=== PATIENT | female | born 1970 | race Hispanic/Latino ===

== ENCOUNTER 2018-12-09 21:43 | Emergency (ER) | payer MEDICAID ==
[2018-12-09] MEDS ORDERED: TETANUS & DIPHTHERIA TOX,ADULT 0.5 ML VIAL ONE (21:58)
[2018-12-09] MEDS ORDERED: FENTANYL CITR 100 MCG/2 ML ONE ×2 (22:02→22:45)
[2018-12-09] MEDS ORDERED: LIDOCAINE 1% W/EPI 1:100,000 MDV 20 ML VIAL ONE (22:02)
[2018-12-09] MEDS ORDERED: VANCOMYCIN 1 GM/VIAL ONE (22:11)
[2018-12-09] MEDS ORDERED: PIPER/TAZO/NS 3.375gm 3.375 GM/100 ML BAG ONE (22:12)
[2018-12-09] MEDS ORDERED: NA CHLORIDE 0.9% 250 ML ONE (22:13)
[2018-12-09 22:19] LABS: Absolute Lymphocytes (CBC) 3.8 K/uL (0.7-4.9); Basophils % 0.6 % (0-1.3); Hematocrit 40.1 % (36.0-45.0); Lymphocytes % 32.4 % (15.3-44.8); MPV 8.1 fL (7.6-11.3)
[2018-12-09 22:20] LABS: Protime INR 1.14
[2018-12-09 22:38] LABS: Albumin 3.8 g/dL (3.4-5.0); Bilirubin Total 0.2 mg/dL (0.2-1.0); Potassium 3.7 mmol/L (3.5-5.1); Protein, Total 7.6 g/dL (6.4-8.2)
[2018-12-10] MEDS ORDERED: NA CHLORIDE 0.9% 1,000 ML ONE (00:25)
--- NOTE | 2018-12-10 02:01 | EDPHYS ---
Physician Documentation [facility] Name: Anne Marie Lester Age: 48 yrs Sex: Female : 1970 Arrival Date: 12/09/2018 Time: 21:47 Bed 25 Private MD: ED Physician Guillermo Engel HPI: 12/10 08:32 This 48 yrs old Female presents to ER via EMS with complaints of Leg Injury. wa 08:32 The patient presents with an injury, a puncture wound, large bolt. The complaints wa affect the medial aspect of left upper calf. The complaints affect the. Context: The problem was sustained at home, resulted from the patient falling, the patient is not able to bear weight, the patient is not able to ambulate, Problem is a result from a previous injury: No. per EMS and pt tripped and fell on a 4 inch bolt nailed to the ground in her garage. impaled L leg on the bolt. Onset: The symptoms/episode began/occurred just prior to arrival. Modifying factors: The symptoms are alleviated by nothing. the symptoms are aggravated by movement, weight bearing. Associated signs and symptoms: Pertinent positives: swelling, pain. bleeding, of the lateral aspect of left calf. Treatment prior to arrival includes: lina wrap, pain meds by EMS- gave a dose of nubain. Severity of symptoms: At their worst the symptoms were moderate, in the emergency department the symptoms have improved. The patient has not experienced similar symptoms in the past. The patient has not recently seen a physician. . CAP SEWER: 12/09 21:42 LMP N/A - Hysterectomy fc Historical: - Allergies: 21:58 No Known Allergies; fc - Home Meds: 21:58 None [Active]; fc - PMHx: 21:58 cervical cancer; GERD; fc - PSHx: 21:58 Hysterectomy; Cholecystectomy; fc - Immunization history: Last tetanus immunization: unknown. - Social history:: Smoking status: Patient/guardian denies using tobacco, Patient uses alcohol, occasionally. Patient/guardian denies using street drugs. - Ebola Screening: : Patient negative for fever greater than or equal to 101.5 degrees Fahrenheit, and additional compatible Ebola Virus Disease symptoms Patient denies exposure to infectious person Patient denies travel to an Ebola-affected area in the 21 days before illness onset. - Family history:: not pertinent. - Hospitalizations: : No recent hospitalization is reported. ROS: 12/10 08:38 Constitutional: Negative for fever, chills, and weight loss, Eyes: Negative for injury, wa pain, redness, and discharge, ENT: Negative for injury, pain, and discharge, Neck: Negative for injury, pain, and swelling, Cardiovascular: Negative for chest pain, palpitations, and edema, Respiratory: Negative for shortness of breath, cough, wheezing, and pleuritic chest pain, Abdomen/GI: Negative for abdominal pain, nausea, vomiting, diarrhea, and constipation, Back: Negative for injury and pain, : Negative for injury, bleeding, discharge, and swelling, Neuro: Negative for headache, weakness, numbness, tingling, and seizure, Psych: Negative for depression, anxiety, suicide ideation, homicidal ideation, and hallucinations. MS/extremity: Positive for puncture, tenderness, of the lateral aspect of left calf, Negative for deformity. Skin: Positive for puncture, of the lateral aspect of left calf. Exam: 08:39 Constitutional: This is a well developed, well nourished patient who is awake, alert, wa and in no acute distress. Head/Face: Normocephalic, atraumatic. Eyes: Pupils equal round and reactive to light, extra-ocular motions intact. Lids and lashes normal. Conjunctiva and sclera are non-icteric and not injected. Cornea within normal limits. Periorbital areas with no swelling, redness, or edema. ENT: Nares patent. No nasal discharge, no septal abnormalities noted. Tympanic membranes are normal and external auditory canals are clear. Oropharynx with no redness, swelling, or masses, exudates, or evidence of obstruction, uvula midline. Mucous membranes moist. Neck: Trachea midline, no thyromegaly or masses palpated, and no cervical lymphadenopathy. Supple, full range of motion without nuchal rigidity, or vertebral point tenderness. No Meningismus. Chest/axilla: Normal chest wall appearance and motion. Nontender with no deformity. No lesions are appreciated. Cardiovascular: Regular rate and rhythm with a normal S1 and S2. No gallops, murmurs, or rubs. Normal PMI, no JVD. No pulse deficits. Respiratory: Lungs have equal breath sounds bilaterally, clear to auscultation and percussion. No rales, rhonchi or wheezes noted. No increased work of breathing, no retractions or nasal flaring. Abdomen/GI: Soft, non-tender, with normal bowel sounds. No distension or tympany. No guarding or rebound. No evidence of tenderness throughout. Back: No spinal tenderness. No costovertebral tenderness. Full range of motion. Neuro: Awake and alert, GCS 15, oriented to person, place, time, and situation. Cranial nerves II-XII grossly intact. Motor strength 5/5 in all extremities. Sensory grossly intact. Cerebellar exam normal. Normal gait. Psych: Awake, alert, with orientation to person, place and time. Behavior, mood, and affect are within normal limits. 08:39 Musculoskeletal/extremity: Extremities: grossly normal except: noted in the lateral aspect of left calf: contusion, puncture, large, deep puncture wound L lateral proximal leg about 4 cm below level of knee. noted to bone. 08:39 Skin: see musculoskeletal exam above. Vital Signs: 12/09 21:42 BP 157 / 100; Pulse 83; Resp 18; Temp 99.1(O); Pulse Ox 98% on R/A; Weight 83.91 kg fc (R); Height 5 ft. 3 in. (160.02 cm) (R); Pain 2/10; 22:51 BP 133 / 71; Pulse 73; Resp 18; Pulse Ox 100% on R/A; Pain 7/10; mg2 23:53 BP 129 / 83; Pulse 70; Resp 18; Pulse Ox 99% on R/A; mg2 12/10 01:00 BP 123 / 73; Pulse 64; Resp 18; Pulse Ox 95% on R/A; wh 01:55 BP 136 / 86; Pulse 66; Resp 18; Pulse Ox 99% on R/A; wh 12/09 21:42 Body Mass Index 32.77 (83.91 kg, 160.02 cm) Renato Coma Score: 12/09 21:42 Eye Response: spontaneous(4). Verbal Response: oriented(5). Motor Response: obeys fc commands(6). Total: 15. 22:51 Eye Response: spontaneous(4). Verbal Response: oriented(5). Motor Response: obeys mg2 commands(6). Total: 15. Trauma Score (Adult): 21:42 Eye Response: spontaneous(1); Verbal Response: oriented(1); Motor Response: obeys fc commands(2); Systolic BP: > 89 mm Hg(4); Respiratory Rate: 10 to 29 per min(4); [place] Score: 15; Trauma Score: 12 22:51 Eye Response: spontaneous(1); Verbal Response: oriented(1); Motor Response: obeys mg2 commands(2); Systolic BP: > 89 mm Hg(4); Respiratory Rate: 10 to 29 per min(4); Renato Score: 15; Trauma Score: 12 Procedures: 12/10 08:41 Performed irrigation: wound anesthetized with 2% lidocaine with epi. washed out of 1 wa liter of NS. dressed with wet-to-dry dressing. pt tolerated well. MDM: 12/09 21:48 Patient medically screened. me 12/10 08:55 Differential diagnosis: open fracture, contusion. Data reviewed: vital signs, nurses wa notes. Test interpretation: by ED physician or midlevel provider: L tib-fib: no acute fx. Test interpretation: by ED physician or midlevel provider: labs noted wnl. . Response to treatment: the patient's symptoms have markedly improved after treatment. ED course: IV abx given. washed out. spoke with ortho Dr. Scales. advised he will not do anything further and pt can go home with abx and f/u as out pt. 08:58 Test interpretation: by ED physician or midlevel provider: labs noted wnl. me 12/09 21:53 Order name: CBC with Diff; Complete Time: 08:57 me 12/09 21:53 Order name: CMP; Complete Time: 08:57 me 12/09 21:47 Order name: Tib Fib Left XRAY fc 12/09 21:53 Order name: PT-INR; Complete Time: 08:57 me 12/09 21:53 Order name: Type And Screen; Complete Time: 08:57 me 12/09 23:11 Order name: Ankle Left 3 View XRAY me 12/09 21:52 Order name: IV Saline Lock; Complete Time: 21:56 me 12/10 02:00 Order name: Crutches; Complete Time: 02:15 me 12/10 02:00 Order name: Aircast Ankle Splint; Complete Time: 02:15 me Administered Medications: 12/09 22:08 Drug: Tetanus-Diphtheria Toxoid Adult 0.5 ml {Strap Maker: [employer]. Exp: mg2 08/01/2020. Lot #: [id number]. } Route: IM; Site: left deltoid; 22:50 Follow up: Response: No adverse reaction [facility] [place] Drug: fentaNYL (PF) 50 mcg Route: IVP; Site: left antecubital; [facility] [place] Follow up: Response: No adverse reaction; Pain is unchanged, physician notified [facility] [place]:19 Drug: Zosyn 3.375 grams Route: IVPB; Infused Over: 60 mins; Site: left antecubital; [facility] [place]:50 Drug: fentaNYL (PF) 50 mcg Route: IVP; Site: left antecubital; [facility] [place]:14 Follow up: Response: No adverse reaction; Marked relief of symptoms [facility] [place]:08 Drug: vancoMYCIN 1 grams Route: IVPB; Infused Over: 2 hrs; Site: left antecubital; [facility] [place] 12/10 02:40 Follow up: Response: No adverse reaction; IV Status: Completed infusion 00:30 Drug: NS 0.9% 1000 ml Route: IV; Rate: 1 bolus; Site: left antecubital; 02:40 Follow up: Response: No adverse reaction; IV Status: Completed infusion 02:15 Drug: fentaNYL (PF) 50 mcg Route: IVP; Site: left antecubital; 02:36 Follow up: Response: No adverse reaction; Pain is decreased; RASS: Alert and Calm (0) Disposition: 12/10/18 01:59 Discharged to Home. Impression: Acute left leg puncture wound, acute ankle sprain. - Condition is Stable. - Discharge Instructions: Puncture Wound, [id number]. - Prescriptions for Augmentin 875- 125 mg Oral Tablet - take 1 tablet by ORAL route every 12 hours for 10 days; 20 tablet. Tramadol 50 mg Oral Tablet - take 1 tablet by ORAL route every 8 hours as needed; 12 tablet. Ibuprofen 800 mg Oral Tablet - take 1 tablet by ORAL route every 12 hours As needed take with food; 20 tablet. - Medication Reconciliation Form, Thank You Letter, Antibiotic Education, Prescription Opioid Use form. - Follow up: Chaim Scales MD; When: 1 - 2 days; Reason: Recheck today's complaints. - Problem is new. - Symptoms have improved. - Notes: please follow up with Dr. Scales within 1-2 days for wound evaluation. take antibiotics as prescribed Signatures: Dispatcher [employer] EDMS Sarah Gillette RN RN Mera Hutchins Guillermo Engel MD MD wa Gardose, Michele, RN RN mg2 Corrections: (The following items were deleted from the chart) 02:39 01:59 12/10/2018 01:59 Discharged to Home. Impression: Acute left leg puncture wound; wh acute ankle sprain. Condition is Stable. Forms are Medication Reconciliation Form, Thank You Letter, Antibiotic Education, Prescription Opioid Use. Follow up: Chaim Scales; When: 1 - 2 days; Reason: Recheck today's complaints. Problem is new. Symptoms have improved. dahlia
--- NOTE | 2018-12-10 02:01 | ER ---
Nurse's Notes [facility] Name: Anne Marie Lester Age: 48 yrs Sex: Female : 1970 Arrival Date: 12/09/2018 Time: 21:47 Bed 25 Private MD: Diagnosis: Acute left leg puncture wound;acute ankle sprain Presentation: 12/09 21:42 Presenting complaint: Patient states: that she was walking outside and tripped. Then her left lower leg was puncture by a 4 inch bolt. When she turned over the leg came off the bolt along with significant amt of tissue. Scant bleeding noted. Care prior to arrival: Bleeding of injury controlled. Injury dressed. Medication(s) given: Nubaine 10 mg IVP IV initiated. 20 GA, in the left antecubital area. Mechanism of Injury: Penetrating trauma inflicted by metal that penetrated 4 inches. Object removed prior to arrival. Trauma event details: Injury occurred in the [facility], Injury occurred: at home. Injury occurred: December 09, 2018 Injury occurred at: 20:55. 21:42 Acuity: MAURA 3 21:42 Method Of Arrival: EMS: [facility] 21:42 Transition of care: patient was not received from another setting of care. Onset of fc symptoms was December 09, 2018 at 20:55. Risk Assessment: Do you want to hurt yourself or someone else? Patient reports no desire to harm self or others. Initial Sepsis Screen: Does the patient meet any 2 criteria? No. Patient's initial sepsis screen is negative. Does the patient have a suspected source of infection? No. Patient's initial sepsis screen is negative. Triage Assessment: 22:28 Injury Description: avulsion. mg2 RECEPTION SPECIALIST: 21:42 LMP N/A - Hysterectomy fc Trauma Activation: Alert Physician: ED Physician; Name: Maren; Notified At: 21:42; Arrived At: 21:42 Physician: General Surgeon; Name: ; Notified At: 21:42; Arrived At: Physician: Radiology; Name: Sharlene Luciano; Notified At: 21:42; Arrived At: 21:42 Physician: Respiratory; Name: ; Notified At: 21:42; Arrived At: Physician: Sydnee; Name: ; Notified At: 21:42; Arrived At: Historical: - Allergies: 21:58 No Known Allergies; fc - Home Meds: 21:58 None [Active]; fc - PMHx: 21:58 cervical cancer; GERD; fc - PSHx: 21:58 Hysterectomy; Cholecystectomy; fc - Immunization history: Last tetanus immunization: unknown. - Social history:: Smoking status: Patient/guardian denies using tobacco, Patient uses alcohol, occasionally. Patient/guardian denies using street drugs. - Ebola Screening: : Patient negative for fever greater than or equal to 101.5 degrees Fahrenheit, and additional compatible Ebola Virus Disease symptoms Patient denies exposure to infectious person Patient denies travel to an Ebola-affected area in the 21 days before illness onset. - Family history:: not pertinent. - Hospitalizations: : No recent hospitalization is reported. Screenin:42 Abuse screen: Denies threats or abuse. Tuberculosis screening: No symptoms or risk fc factors identified. 21:57 Nutritional screening: No deficits noted. Fall Risk Fall in past 12 months (25 points). fc No secondary diagnosis (0 pts). IV access (20 points). Ambulatory Aid- None/Bed Rest/Nurse Assist (0 pts). Gait- Normal/Bed Rest/Wheelchair (0 pts) Mental Status- Oriented to own ability (0 pts). Total Harp Fall Scale indicates High Risk Score (45 or more points). Fall prevention measures have been instituted. Side Rails Up X 2 Placed Close to Nursing Station Frequent Obs/Assessments Occuring As available patient and family educated on Fall Prevention Program and Strategies. Primary Survey: 22:25 NO uncontrolled hemorrhage observed. A: The patient is alert. Airway: patent. mg2 Breathing/Chest: Respiratory pattern: regular, Respiratory effort: spontaneous, unlabored, Breath sounds: clear, bilaterally. in mediastinum, right upper lobe, left upper lobe, right middle lobe, left lower lobe and right lower lobe. Circulation: Skin color: pink. Disability Alert. Exposure/Environment: All clothing and personal items were removed. Forensic evidence collection is not deemed to be indicated at this time. Items placed in patient belonging bag. There is no evidence of uncontrolled external bleeding. Obvious injury(ies) are noted at this time: open wound in the left lower leg A warming method has been applied: A warm blanket has been provided to the patient. 22:50 Reassessment Airway Airway Patent Breathing/Chest Respiratory pattern Regular mg2 Respiratory effort Spontaneous Unlabored. Secondary Survey: 22:26 HEENT: No deficits noted. Gastrointestinal: No deficits noted. : No deficits noted. mg2 Musculoskeletal: Circulation, motion, and sensation intact. Capillary refill < 3 seconds. Injury Description: avulsed wound. Assessment: 22:00 General: Appears in no apparent distress. uncomfortable, Behavior is cooperative, mg2 anxious. Pain: Complains of pain in left lower leg Pain does not radiate. Pain currently is 5 out of 10 on a pain scale. Quality of pain is described as aching, Pain began suddenly, 1 hour ago. Is intermittent. 22:00 Neuro: Level of Consciousness is awake, alert, obeys commands, Oriented to person, mg2 place, time, situation. EENT: No signs and/or symptoms were reported regarding the EENT system. Cardiovascular: Capillary refill < 3 seconds Patient's skin is warm and dry. Respiratory: Airway is patent Respiratory effort is even, unlabored, Respiratory pattern is regular, symmetrical. GI: No signs and/or symptoms were reported involving the gastrointestinal system. : No deficits noted. Derm: Wound noted left lower leg Wound is new wound, scant bleeding noted, tissues exposed. Musculoskeletal: Circulation, motion, and sensation intact. Capillary refill < 3 seconds. 23:53 Reassessment: Patient appears in no apparent distress at this time. Patient and/or mg2 family updated on plan of care and expected duration. Pain level reassessed. Patient is alert, oriented x 3, equal unlabored respirations, skin warm/dry/pink. 12/10 01:00 Reassessment: Patient appears in no apparent distress at this time. No changes from previously documented assessment. Patient and/or family updated on plan of care and expected duration. Pain level reassessed. Patient is alert, oriented x 3, equal unlabored respirations, skin warm/dry/pink. Wound cleaned by Dr Maren QUESADA, dressing change done. 01:54 Reassessment: Patient appears in no apparent distress at this time. No changes from previously documented assessment. Patient and/or family updated on plan of care and expected duration. Pain level reassessed. Patient is alert, oriented x 3, equal unlabored respirations, skin warm/dry/pink. Patient denies pain at this time. Vital Signs: 12/09 21:42 BP 157 / 100; Pulse 83; Resp 18; Temp 99.1(O); Pulse Ox 98% on R/A; Weight 83.91 kg fc (R); Height 5 ft. 3 in. (160.02 cm) (R); Pain 2/10; 22:51 BP 133 / 71; Pulse 73; Resp 18; Pulse Ox 100% on R/A; Pain 7/10; mg2 23:53 BP 129 / 83; Pulse 70; Resp 18; Pulse Ox 99% on R/A; mg2 12/10 01:00 BP 123 / 73; Pulse 64; Resp 18; Pulse Ox 95% on R/A; wh 01:55 BP 136 / 86; Pulse 66; Resp 18; Pulse Ox 99% on R/A; wh 12/09 21:42 Body Mass Index 32.77 (83.91 kg, 160.02 cm) fc [place] Coma Score: 12/09 21:42 Eye Response: spontaneous(4). Verbal Response: oriented(5). Motor Response: obeys fc commands(6). Total: 15. 22:51 Eye Response: spontaneous(4). Verbal Response: oriented(5). Motor Response: obeys mg2 commands(6). Total: 15. Trauma Score (Adult): 21:42 Eye Response: spontaneous(1); Verbal Response: oriented(1); Motor Response: obeys fc commands(2); Systolic BP: > 89 mm Hg(4); Respiratory Rate: 10 to 29 per min(4); Renato Score: 15; Trauma Score: 12 22:51 Eye Response: spontaneous(1); Verbal Response: oriented(1); Motor Response: obeys mg2 commands(2); Systolic BP: > 89 mm Hg(4); Respiratory Rate: 10 to 29 per min(4); Renato Score: 15; Trauma Score: 12 ED Course: 21:42 Patient has correct armband on for positive identification. Bed in low position. Call fc light in reach. Side rails up X2. 21:42 Arm band placed on Patient placed in an exam room, on a stretcher. fc 21:42 Patient maintains SpO2 saturation greater than 95% on room air. Thermoregulation: warm fc blanket given to patient. 21:47 Patient arrived in ED. fc 21:48 Guillermo Engel MD is Attending Physician. wa 21:53 Triage completed. fc 21:56 Roney Moore, BENTLEY is Primary Nurse. mg2 21:57 Maintain EMS IV. Dressing intact. Good blood return noted. Site clean \T\ dry. Gauge \T\ fc site: 20 gauge to left a/c. 22:08 Tib Fib Left XRAY In Process Unspecified. EDMS 12/10 00:36 Ankle Left 3 View XRAY In Process Unspecified. EDMS 01:58 Chaim Scales MD is Referral Physician. wa 02:37 No provider procedures requiring assistance completed. IV discontinued, intact, wh bleeding controlled, No redness/swelling at site. Administered Medications: 12/09 22:08 Drug: Tetanus-Diphtheria Toxoid Adult 0.5 ml {Dietitian Chief: [employer]. Exp: mg2 08/01/2020. Lot #: [id number]. } Route: IM; Site: left deltoid; 22:50 Follow up: Response: No adverse reaction mg2 22:09 Drug: fentaNYL (PF) 50 mcg Route: IVP; Site: left antecubital; mg2 22:50 Follow up: Response: No adverse reaction; Pain is unchanged, physician notified mg2 22:19 Drug: Zosyn 3.375 grams Route: IVPB; Infused Over: 60 mins; Site: left antecubital; mg2 22:50 Drug: fentaNYL (PF) 50 mcg Route: IVP; Site: left antecubital; mg2 23:14 Follow up: Response: No adverse reaction; Marked relief of symptoms mg2 23:08 Drug: vancoMYCIN 1 grams Route: IVPB; Infused Over: 2 hrs; Site: [place] antecubital[place] [facility] [place] 02:40 Follow up: Response: No adverse reaction; IV Status: Completed infusion 00:30 Drug: NS 0.9% 1000 ml Route: IV; Rate: 1 bolus; Site: left antecubital; 02:40 Follow up: Response: No adverse reaction; IV Status: Completed infusion 02:15 Drug: fentaNYL (PF) 50 mcg Route: IVP; Site: left antecubital; 02:36 Follow up: Response: No adverse reaction; Pain is decreased; RASS: Alert and Calm (0) Intake: 02:39 IV: 1000ml; Total: 1000ml. Output: 02:39 Urine: 450ml; Total: 450ml. Outcome: 01:59 Discharge ordered by . or 02:38 Discharged to home with crutches, with family. 02:38 Condition: good 02:38 Discharge instructions given to patient, Instructed on discharge instructions, follow up and referral plans. no drinking with medication, no driving heavy equipment, wound care, Demonstrated understanding of instructions, follow-up care, medications, wound care, crutch walking, splint care, Prescriptions given X 2. 02:39 Patient's length of stay in the Emergency Department was greater than 2 hours. 02:39 Patient left the ED. Signatures: Dispatcher [employer] EDMS Sarah Gillette RN RN Mera Gibbons Guillermo Engel MD MD wa Gardose, Michele, RN RN mg2
[2018-12-10] MEDS ORDERED: FENTANYL CITR 100 MCG/2 ML ONE (02:25)
[2018-12-10 03:33] VITALS: BP 136/86; O2SAT 99
--- NOTE | 2018-12-10 08:58 | RAD REPORT ---
EXAM DESCRIPTION: RAD - Tib Fib Left - 12/09/2018 10:08 pm CLINICAL HISTORY: Leg pain, puncture wound upper left leg COMPARISON: None. FINDINGS: No fracture is identified. There is no dislocation or periosteal reaction noted. No acute or suspicious bony finding. Soft tissue wound is present anterolateral left upper leg with no retained foreign body. IMPRESSION: Upper left leg soft tissue wound without retained foreign body. No bone abnormality.
--- NOTE | 2018-12-10 09:01 | RAD REPORT ---
EXAM DESCRIPTION: RAD - Ankle Left 3 View - 12/10/2018 12:25 am CLINICAL HISTORY: Trip and fall, upper leg puncture wound, ankle pain COMPARISON: None. FINDINGS: No fracture, dislocation or periosteal reaction. No joint effusion seen. No joint space na rrowing. No soft tissue abnormality. IMPRESSION: Negative left ankle for fracture or other acute finding.
== END 2018-12-10 02:39 | disposition home or self-care (01) ==
LOC: ER 21:43
DX: S81.832A Puncture wound without foreign body, left lower leg, initial encounter (principal); S93.402A Sprain of unspecified ligament of left ankle, initial encounter; W01.118A Fall on same level from slipping, tripping and stumbling with subsequent striking against other sharp object, initial encounter; Y93.89 Activity, other specified; Y92.008 Other place in unspecified non-institutional (private) residence as the place of occurrence of the external cause; Z23 Encounter for immunization; Z85.41 Personal history of malignant neoplasm of cervix uteri
CPT/HCPCS: 96365; 85025; 36415; 86900; 86850; 85610; 86901; 80053; 73590; 73610; 90471; 90714; 96375; 99284; 96366; J3010 ×3; J2543; J7030

== ENCOUNTER 2019-04-01 16:57 | Emergency (ER) | payer OTHER ==
--- OUTSIDE RECORDS SUMMARY | 2019-04-01 17:00 | XMS REPORT ---
:1970 [facility] Address [address] [place] [address] Dr. Hernandez [address] [place] [id number] Care Team Providers Name Role Phone Unavailable Unavailable Unavailable Problems This patient has no known problems. Allergies, Adverse Reactions, Alerts This patient has no known allergies or adverse reactions. Medications This patient has no known medications.
[2019-04-01] MEDS ORDERED: IBUPROFEN 400 MG TAB ONE (17:40)
[2019-04-01] MEDS ORDERED: HYDROCODONE/APAP 5/325 MG TAB ONE (17:40)
--- NOTE | 2019-04-01 18:02 | EDPHYS ---
Physician Documentation [facility] Name: Anne Marie Lester Age: 48 yrs Sex: Female : 1970 Arrival Date: 04/01/2019 Time: 16:58 Bed 24 Private MD: ED Physician Davy Link HPI: 04/01 17:17 This 48 yrs old Female presents to ER via Ambulatory with complaints of Sore snw Throat, Fever. 17:17 The patient presents with sore throat. The patient describes throat pain as raw, snw scratchy. Onset: The symptoms/episode began/occurred suddenly, and became persistent. Severity of symptoms: At their worst the symptoms were moderate. Associated signs and symptoms: Pertinent positives: fever, flu-like symptoms, headache. The patient has not experienced similar symptoms in the past. It is unknown whether or not the patient has recently seen a physician, Sees Dr. Lira. 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 - Social history:: Smoking status: Patient/guardian denies using tobacco. - Ebola Screening: : Patient denies exposure to infectious person Patient denies travel to an Ebola-affected area in the 21 days before illness onset. ROS: 17:17 Constitutional: Negative for fever, chills, and weight loss, Eyes: Negative for injury, snw pain, redness, and discharge, Neck: Negative for injury, pain, and swelling, Cardiovascular: Negative for chest pain, palpitations, and edema, Respiratory: Negative for shortness of breath, cough, wheezing, and pleuritic chest pain, Abdomen/GI: Negative for abdominal pain, nausea, vomiting, diarrhea, and constipation, Back: Negative for injury and pain, : Negative for injury, bleeding, discharge, and swelling, MS/Extremity: Negative for injury and deformity, Skin: Negative for injury, rash, and discoloration, Neuro: Negative for weakness, numbness, tingling, and seizure, + headache Psych: Negative for depression, anxiety, suicide ideation, homicidal ideation, and hallucinations. 17:17 ENT: Positive for sore throat. Exam: 17:16 Constitutional: This is a well developed, well nourished patient who is awake, alert, snw and in no acute distress. Head/Face: Normocephalic, atraumatic. Eyes: Pupils equal round and reactive to light, extra-ocular motions intact. Lids and lashes normal. Conjunctiva and sclera are non-icteric and not injected. Cornea within normal limits. Periorbital areas with no swelling, redness, or edema. Neck: Trachea midline, no thyromegaly or masses palpated, and no cervical lymphadenopathy. Supple, full range of motion without nuchal rigidity, or vertebral point tenderness. No Meningismus. Chest/axilla: Normal chest wall appearance and motion. Nontender with no deformity. No lesions are appreciated. Cardiovascular: Regular rate and rhythm with a normal S1 and S2. No gallops, murmurs, or rubs. Normal PMI, no JVD. No pulse deficits. Respiratory: Lungs have equal breath sounds bilaterally, clear to auscultation and percussion. No rales, rhonchi or wheezes noted. No increased work of breathing, no retractions or nasal flaring. Abdomen/GI: Soft, non-tender, with normal bowel sounds. No distension or tympany. No guarding or rebound. No evidence of tenderness throughout. Back: No spinal tenderness. No costovertebral tenderness. Full range of motion. Skin: Warm, dry with normal turgor. Normal color with no rashes, no lesions, and no evidence of cellulitis. MS/ Extremity: Pulses equal, no cyanosis. Neurovascular intact. Full, normal range of motion. Neuro: Awake and alert, GCS 15, oriented to person, place, time, and situation. Cranial nerves II-XII grossly intact. Motor strength 5/5 in all extremities. Sensory grossly intact. Cerebellar exam normal. Normal gait. Psych: Awake, alert, with orientation to person, place and time. Behavior, mood, and affect are within normal limits. 17:16 ENT: External ear(s): no acute changes, Ear canal(s): are normal, TM's: are normal, Nose: is normal, Mouth: is normal, Posterior pharynx: erythema, that is mild, Voice: is normal. Vital Signs: 17:19 BP 168 / 102; Pulse 108; Resp 16; Temp 101; Pulse Ox 100% on R/A; Weight 83.91 kg; ss Height 5 ft. 3 in. (160.02 cm); 17:44 BP 139 / 92; Pulse 103; Resp 18; Pulse Ox 100% on R/A; mg2 18:12 Temp 99.9(O); mg2 17:19 Body Mass Index 32.77 (83.91 kg, 160.02 cm) ss MDM: 17:10 Patient medically screened. snw 18:02 Data reviewed: vital signs, nurses notes. Data interpreted: Pulse oximetry: on room air snw is 100 %. Interpretation: normal. Counseling: I had a detailed discussion with the patient and/or guardian regarding: the historical points, exam findings, and any diagnostic results supporting the discharge/admit diagnosis, lab results, the need for outpatient follow up, for definitive care, to return to the emergency department if symptoms worsen or persist or if there are any questions or concerns that arise at home. Special discussion: I have referred the patient to see his PCP for further evaluation of high blood pressure. Based on the history and exam findings, there is no indication for further emergent testing or inpatient evaluation. I discussed with the patient/guardian the need to see the primary care provider for further evaluation of the symptoms. 04/01 17:01 Order name: Strep; Complete Time: 17:45 snw 04/01 17:01 Order name: Flu; Complete Time: 17:57 snw 04/01 17:43 Order name: Throat Culture [facility] 04/01 17:46 Order name: Urine Culture [facility] 04/01 17:46 Order name: Urine Microscopic Only; Complete Time: 06:31 snw 04/01 18:00 Order name: Urine Dipstick--Ancillary (enter results); Complete Time: 06:31 ss 04/01 17:46 Order name: Urine Dipstick-Ancillary (obtain specimen); Complete Time: 17:54 snw 04/01 18:00 Order name: Urine --Ancillary (enter results); Complete Time: 06:31 ss Administered Medications: 17:43 Drug: Motrin 400 mg Route: PO; mg2 18:13 Follow up: Response: No adverse reaction; Marked relief of symptoms mg2 17:43 Drug: [place] 5 mg-325 mg 1 tabs Route: PO; mg2 18:13 Follow up: Response: No adverse reaction; Marked relief of symptoms mg2 Disposition: 18:15 Co-signature as Attending Physician, Davy Link MD. rn Disposition: 04/01/19 18:01 Discharged to Home. Impression: Influenza due to certain identified influenza viruses. - Condition is Stable. - Discharge Instructions: Fever, Adult, Influenza, Adult, Sore Throat, Rehydration, Adult. - Prescriptions for Zofran 4 mg Oral Tablet - take 1 tablet by ORAL route every 12 hours As needed; 20 tablet. Tamiflu 75 mg Oral Capsule - take 1 tablet by ORAL route every 12 hours for 5 days; 10 tablet. - Work release form, Medication Reconciliation Form, Thank You Letter, Antibiotic Education, Prescription Opioid Use form. - Follow up: Private Physician; When: 2 - 3 days; Reason: Recheck today's complaints, Continuance of care, Re-evaluation by your physician. Follow up: Emergency Department; When: As needed; Reason: Worsening of condition. Signatures: Dispatcher [employer] EDME Stacy Batres, WHITLEY-C MAGNETIC TAPE TYPEWRITER OPERATOR-Csnw Davy Link MD MD rn Smirch, Shelby, RN RN ss Roney Moore RN RN mg2 Corrections: (The following items were deleted from the chart) 18:14 18:01 04/01/2019 18:01 Discharged to Home. Impression: Influenza due to certain mg2 identified influenza viruses. Condition is Stable. Discharge Instructions: Fever, Adult, Influenza, Adult, Sore Throat, Rehydration, Adult. Prescriptions for Zofran 4 mg Oral Tablet - take 1 tablet by ORAL route every 12 hours As needed; 20 tablet, Tamiflu 75 mg Oral Capsule - take 1 tablet by ORAL route every 12 hours for 5 days; 10 tablet. and Forms are Work release form, Medication Reconciliation Form, Thank You Letter, Antibiotic Education, Prescription Opioid Use. Follow up: Private Physician; When: 2 - 3 days; Reason: Recheck today's complaints, Continuance of care, Re-evaluation by your physician. Follow up: Emergency Department; When: As needed; Reason: Worsening of condition. snw
--- NOTE | 2019-04-01 18:02 | ER ---
Nurse's Notes [facility] Name: Anne Marie Lester Age: 48 yrs Sex: Female : 1970 Arrival Date: 04/01/2019 Time: 16:58 Bed 24 Private MD: Diagnosis: Influenza due to certain identified influenza viruses Presentation: 04/01 17:16 Presenting complaint: Patient states: sore throat, bilateral ear pain and headache that ss began earlier today. Transition of care: patient was not received from another setting of care. Onset of symptoms was April 01, 2019. Risk Assessment: Do you want to hurt yourself or someone else? Patient reports no desire to harm self or others. Initial Sepsis Screen: Does the patient meet any 2 criteria? No. Patient's initial sepsis screen is negative. Does the patient have a suspected source of infection? No. Patient's initial sepsis screen is negative. Care prior to arrival: None. 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 - Social history:: Smoking status: Patient/guardian denies using tobacco. - Ebola Screening: : Patient denies exposure to infectious person Patient denies travel to an Ebola-affected area in the 21 days before illness onset. Screenin:50 Abuse screen: Denies threats or abuse. Denies injuries from another. Nutritional mg2 screening: No deficits noted. Tuberculosis screening: No symptoms or risk factors identified. Fall Risk None identified. Assessment: 17:48 General: Appears in no apparent distress. comfortable, Behavior is calm, cooperative. mg2 Pain: Complains of pain in throat and back. Neuro: Level of Consciousness is awake, alert, obeys commands, Oriented to person, place, time, situation. Cardiovascular: Capillary refill < 3 seconds Patient's skin is warm and dry. Respiratory: Airway is patent Respiratory effort is even, unlabored, Respiratory pattern is Breath sounds are clear. GI: No signs and/or symptoms were reported involving the gastrointestinal system. : Reports pain in lower back. EENT: Throat is reddened. Derm: Skin is intact, is healthy with good turgor, Skin is pink, warm \T\ dry. normal. Derm: Rash noted that is itchy, red, raised, vesicular, on scalp. Musculoskeletal: Circulation, motion, and sensation intact. Capillary refill < 3 seconds. 18:11 Reassessment: Patient appears in no apparent distress at this time. Patient states mg2 feeling better. Vital Signs: 17:19 BP 168 / 102; Pulse 108; Resp 16; Temp 101; Pulse Ox 100% on R/A; Weight 83.91 kg; ss Height 5 ft. 3 in. (160.02 cm); 17:44 BP 139 / 92; Pulse 103; Resp 18; Pulse Ox 100% on R/A; mg2 18:12 Temp 99.9(O); mg2 17:19 Body Mass Index 32.77 (83.91 kg, 160.02 cm) ED Course: 16:58 Patient arrived in ED. as 17:00 Stacy Batres FNP-C is PHCP. snw 17:00 Davy Link MD is Attending Physician. snw 17:16 Patient maintains SpO2 saturation greater than 95% on room air. jp3 17:16 Patient has correct armband on for positive identification. Bed in low position. Call jp3 light in reach. Side rails up X 1. Verbal reassurance given. Pulse ox on. NIBP on. 17:17 Triage completed. ss 17:19 Arm band placed on right wrist. ss 17:22 Flu Sent. jp3 17:22 Strep Sent. jp3 17:22 Flu and/or RSV swab sent to lab. Strep swab sent to lab. jp3 17:34 Roney Moore, BENTLEY is Primary Nurse. mg2 17:50 No provider procedures requiring assistance completed. Patient did not have IV access mg2 during this emergency room visit. 17:59 Urine collected: clean catch specimen, clear, higinio colored. jp3 18:00 Urine Microscopic Only Sent. jp3 18:00 Urine Culture Sent. jp3 18:01 Urine --Ancillary (enter results) Sent. jp3 18:01 Urine Dipstick--Ancillary (enter results) Sent. jp3 Administered Medications: 17:43 Drug: Motrin 400 mg Route: PO; mg2 18:13 Follow up: Response: No adverse reaction; Marked relief of symptoms mg2 17:43 Drug: [place] 5 mg-325 mg 1 tabs Route: PO; mg2 18:13 Follow up: Response: No adverse reaction; Marked relief of symptoms mg2 Outcome: 18:01 Discharge ordered by MD. lyle 18:12 Discharged to home ambulatory, with family. mg2 18:12 Condition: stable 18:12 Discharge instructions given to patient, family, Instructed on discharge instructions, follow up and referral plans. medication usage, Demonstrated understanding of instructions, follow-up care, medications, Prescriptions given X 2. 18:14 Patient left the ED. mg2 Addendum: 04/05/2019 17:21 Addendum: Culture Results: Positive urine culture. No further action required. Other: s s No s/s of UTI. Signatures: Stacy Batres, SHIPPING CLERK-C SHIPPING CLERK-Hectorw Didi Durant Shelby, RN RN Roney Moore RN RN mg2 Tray Mcgregor jp3
[2019-04-01 18:11] LABS: Urine Blood NEGATIVE (NEG); Urine Glucose NEGATIVE (NEG); Urine Protein NEGATIVE (NEG); Urine Specific Gravity 1.015 (1.005-1.030)
[2019-04-01 18:11] LABS: Urine Bacteria <20 /HPF (<20); Urine Culture Reflex Order NOT NEEDED; Urine RBC NONE SEEN /HPF (NONE SEEN)
[2019-04-01 18:46] VITALS: O2SAT 100
[2019-04-01 18:47] VITALS: BP 139/92
[2019-04-01 18:49] VITALS: TEMP 99.9
== END 2019-04-01 18:14 | disposition home or self-care (01) ==
LOC: ER 16:57
DX: J10.1 Influenza due to other identified influenza virus with other respiratory manifestations (principal); Z85.41 Personal history of malignant neoplasm of cervix uteri
CPT/HCPCS: 81003; 81015; 81025; 87070; 87077; 87081; 87086; 87088; 87186; 87804; 99284

== ENCOUNTER 2020-09-29 18:36 | Emergency (ER) | payer OTHER ==
--- OUTSIDE RECORDS SUMMARY | 2020-09-29 18:40 | XMS REPORT | Continuity of Care Document ---
:1970 Author Organization [facility] t Address [address] [place] [address] Care Team Providers Name Role Phone Doctor Unassigned, Name Attending Clinician Unavailable Radiology Attending Clinician Unavailable Problems This patient has no known problems. Allergies, Adverse Reactions, Alerts This patient has no known allergies or adverse reactions. Medications This patient has no known medications. Procedures This patient has no known procedures. Encounters Start End Encounter Admission Attending Care Care Encounter Source Date/Time Date/Time Type Type Clinicians Facility Department ID 2020-06-19 2020-06-19 Orders Doctor HORN [id number] 00:00:00 00:00:00 Only UnassignedDAVID [id number] [facility] [id number] 2020-06-12 2020-06-12 [facility] Radiology [facility] [id number] 12:59:22 23:59:00 Encounter Aj [id number] [place] [id number] [place] [id number] 2020-06-12 2020-06-12 Orders Doctor HORN [id number] 00:00:00 00:00:00 Only UnassignedDAVID [id number] [facility] [id number] Results This patient has no known results.
[2020-09-29] MEDS ORDERED: NA CHLORIDE 0.9% 1,000 ML ONE (23:02)
[2020-09-29] MEDS ORDERED: ASPIRIN 81 MG CHEWABLE TABLET ONE (23:02)
[2020-09-29] MEDS ORDERED: FOLIC ACID 5 MG/ML VIAL ONE (23:04)
[2020-09-29 23:07] LABS: Absolute Lymphocytes (CBC) 3.1 K/uL (0.7-4.9); Basophils % 0.8 % (0-1.3); Hematocrit 40.8 % (36.0-45.0); Lymphocytes % 29.6 % (15.3-44.8); MPV 8.1 fL (7.6-11.3); RBC Red Blood Cell Count 4.78 M/uL (3.86-4.86)
[2020-09-29 23:08] LABS: Protime INR 1.06
[2020-09-29 23:19] LABS: Urine Blood Negative (Negative); Urine Glucose Negative (Negative); Urine Protein Negative (Negative); Urine pH 5.5 (5.0-7.0)
[2020-09-29 23:23] LABS: ALT/SGPT 53 U/L (12-78); AST/SGOT 30 U/L (15-37); Alkaline Phosphatase 123 U/L (45-117); BUN Blood Urea Nitrogen 13 mg/dL (7-18); Bicarbonate 29 mmol/L (21-32); Bilirubin Direct 0.1 mg/dL (0-0.2); Bilirubin Total 0.3 mg/dL (0.2-1.0); C-Reactive Protein 7.08 mg/L (<3.00); Glucose Level 99 mg/dL (74-106); Magnesium 1.8 mg/dL (1.8-2.4); NT PRO-BNP 123 pg/mL (<125); Potassium 3.5 mmol/L (3.5-5.1); Protein, Total 8.2 g/dL (6.4-8.2); Sodium Level 142 mmol/L (136-145); Troponin (Emerg Dept Use Only) < 0.02 ng/mL (0.0-0.045)
--- NOTE | 2020-09-29 23:47 | ER ---
Nurse's Notes [facility] Name: Anne Marie Lester Age: 50 yrs Sex: Female : 1970 Arrival Date: 09/29/2020 Time: 18:39 Bed 23 Private MD: Diagnosis: Adjustment disorder with anxiety;Anxiety disorder, unspecified;UTI/ Urinary tract infection, site not specified Presentation: 09/29 19:41 Chief complaint: Patient states: Around 1630, felt my whole face feel funny, throat ca1 feels like closing up, felt very lightheaded, dizzy, confused. Both arms feel heavy. Now I feel better. Coronavirus screen: Client denies travel out of the [place] in the last 14 days. At this time, the client does not indicate any symptoms associated with coronavirus-19. Ebola Screen: Patient negative for fever greater than or equal to 101.5 degrees Fahrenheit, and additional compatible Ebola Virus Disease symptoms Patient denies exposure to infectious person. Patient denies travel to an Ebola-affected area in the 21 days before illness onset. No symptoms or risks identified at this time. Initial Sepsis Screen: Does the patient meet any 2 criteria? No. Patient's initial sepsis screen is negative. Does the patient have a suspected source of infection? No. Patient's initial sepsis screen is negative. Risk Assessment: Do you want to hurt yourself or someone else? Patient reports no desire to harm self or others. Onset of symptoms was September 29, 2020 at 16:30. 19:41 Method Of Arrival: Ambulatory ca1 19:41 Acuity: MAURA 3 ca1 Triage Assessment: 23:55 Headache History: Denies prior headaches. General: Appears in no apparent distress. ld1 comfortable. Pain: Also complains of. Pain: Denies pain. 23:56 Pain: Pain currently is 0 out of 10 on a pain scale. Pain began denies Is. 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 - Social history:: Smoking status: . - Family history:: not pertinent. Screenin:14 Abuse screen: Denies threats or abuse. Denies injuries from another. Nutritional ld1 screening: No deficits noted. Tuberculosis screening: No symptoms or risk factors identified. Fall Risk None identified. Assessment: 22:14 General: Appears in no apparent distress. uncomfortable, Behavior is calm, cooperative, ld1 appropriate for age, anxious. Pain: Denies pain. Neuro: Level of Consciousness is awake, alert, obeys commands, Oriented to person, place, time, situation. Neuro: Reports dizziness, headache weakness. Cardiovascular: Reports fatigue, lightheadedness, Capillary refill < 3 seconds Patient's skin is warm and dry. Respiratory: Airway is patent Respiratory effort is even, unlabored, Respiratory pattern is regular, symmetrical. Respiratory:. GI: Abdomen is round non-distended. : No signs and/or symptoms were reported regarding the genitourinary system. EENT: No signs and/or symptoms were reported regarding the EENT system. Derm: No signs and/or symptoms reported regarding the dermatologic system. Musculoskeletal: No signs and/or symptoms reported regarding the musculoskeletal system. Vital Signs: 19:41 BP 156 / 89; Pulse 68; Resp 18 S; Temp 98.5(TE); Pulse Ox 98% on R/A; Weight 88.45 kg ca1 (R); Height 5 ft. 3 in. (160.02 cm) (R); Pain 0/10; 22:14 BP 163 / 105; Pulse 69; Resp 18; Pulse Ox 99% on R/A; Pain 0/10; ld1 19:41 Body Mass Index 34.54 (88.45 kg, 160.02 cm) ca1 Cowgill Coma Score: 22:35 Eye Response: spontaneous(4). Verbal Response: oriented(5). Motor Response: obeys [facility] commands(6). Total: 15. NIH Stroke Scale Scores: 22:32 NIHSS Score: 0 [facility] ED Course: 18:39 Patient arrived in ED. rg4 19:45 Triage completed. ca1 19:47 Arm band placed on right wrist. ca1 22:05 Susana Buck RN is Primary Nurse. ld1 22:08 Jeff Sigala MD is Attending Physician. leanna 22:14 Patient has correct armband on for positive identification. Bed in low position. Call ld1 light in reach. Side rails up X2. threat monitoring analyst on. Pulse ox on. NIBP on. Door closed. Noise minimized. Warm blanket given. 22:14 No provider procedures requiring assistance completed. ld1 22:57 CT Head Brain wo Cont In Process Unspecified. EDMS 23:45 Guillermo Lira MD is Referral Physician. [facility] 23:45 Buzz Coker MD is Referral Physician. [facility] 23:47 XRAY Chest (1 view) In Process Unspecified. EDMS 23:56 IV discontinued, intact, bleeding controlled, No redness/swelling at site. ld1 Administered Medications: 22:57 Drug: NS 0.9% 1000 ml Route: IV; Rate: 1 bolus; Site: left antecubital; ld1 22:57 Drug: foLIC Acid 1 mg Route: IVPB; Site: left antecubital; ld1 22:57 Drug: Aspirin Chewable Tablet 324 mg Route: PO; ld1 23:45 Drug: Rocephin (cefTRIAXone) 1 grams Route: IV; Rate: per protocol; Site: left ld1 antecubital; 23:45 Drug: Cipro (ciprofloxacin) 500 mg Route: PO; ld1 23:45 Drug: Ativan (LORazepam) 0.5 mg Route: IVP; Site: left antecubital; ld1 Outcome: 23:45 Discharge ordered by . [facility] 23:56 Discharged to home ambulatory. ld1 23:56 Condition: stable 23:56 Discharge instructions given to patient, family, Instructed on discharge instructions, follow up and referral plans. medication usage, Demonstrated understanding of instructions, follow-up care, medications. 23:56 Patient left the ED. ld1 NIH Stroke Scale - NIH Stroke Score Date: 09/29/2020 Time: 22:32 Total Score = 0 1a. Level of Consciousness (LOC) - 0(Alert) 1b. Level of Consciousness (LOC) (Month \T\ Age) - 0(Both) 1c. LOC Commands (Open \T\ Closes Eyes/Drafter Structural) - 0(Both) 2. Best Gaze (Lateral Gaze Paresis) - 0(Normal) 3. Visual Field Loss - 0(No visual loss) 4. Facial Palsy - 0(Normal) 5a. Left Arm: Motor (10-second hold) - 0(No drift) 5b. Right Arm: Motor (10-second hold) - 0(No drift) 6a. Left Leg: Motor (5-second hold - always test supine) - 0(No drift) 6b. Right Leg: Motor (5-second hold - always test supine) - 0(No drift) 7. Limb Ataxia (finger/nose \T\ heel/farias - test with eyes open) - 0(Absent) 8. Sensory Loss (pinprick arms/legs/face) - 0(Normal) 9. Best Language: Aphasia (description/naming/reading) - 0(No aphasia) 10. Dysarthria (speech clarity - read or repeat words) - 0(Normal) 11. Extinction and Inattention (visual/tactile/auditory/spatial/personal) - 0(No abnormality) Initials: leanna Signatures: Dispatcher [employer] EDJeff Bains MD MD cha Garcia, Rubi rg4 Denise Slaughter RN RN ca1 Susana Buck RN RN ld1 Corrections: (The following items were deleted from the chart) 19:46 19:41 Chief complaint: Patient states: Around 1630, felt my whole face feel ca1 funny, throat feels like closing up, felt very lightheaded, dizzy, confused. Feels my R side was heavy. Now I feel better. ca1 19:47 19:46 PSHx: None; ca1 ca1
--- NOTE | 2020-09-29 23:47 | EDPHYS ---
Physician Documentation [facility] Name: Anne Marie Lester Age: 50 yrs Sex: Female : 1970 Arrival Date: 09/29/2020 Time: 18:39 Bed 23 Private MD: IVAN Physician Jeff Sigala HPI: 09/29 22:32 This 50 yrs old Female presents to ER via Ambulatory with complaints of leanna Headache, Dizziness, Numbness Of Face. 22:32 The patient complains of pain to the top of head, forehead, left frontal area, left leanna side of the back of head, left occipital area, left base of the skull, right frontal area, right side of the back of head, right occipital area and right base of the skull. The patient describes the headache as aching. Onset: The symptoms/episode began/occurred today. Associated signs and symptoms: Pertinent positives:. Severity of symptoms: At its worst the pain was mild, in the emergency department the pain is unchanged. Headache History: Denies prior headaches. The patient has not experienced similar symptoms in the past. 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 - Social history:: Smoking status: . - Family history:: not pertinent. ROS: 22:32 Constitutional: Negative for fever, chills, and weight loss, Eyes: Negative for injury, leanna pain, redness, and discharge, ENT: Negative for injury, pain, and discharge, Neck: Negative for injury, pain, and swelling, Cardiovascular: Negative for chest pain, palpitations, and edema, Respiratory: Negative for shortness of breath, cough, wheezing, and pleuritic chest pain, Abdomen/GI: Negative for abdominal pain, nausea, vomiting, diarrhea, and constipation, Back: Negative for injury and pain, : Negative for injury, bleeding, discharge, and swelling, MS/Extremity: Negative for injury and deformity, Skin: Negative for injury, rash, and discoloration, Psych: Negative for depression, anxiety, suicide ideation, homicidal ideation, and hallucinations, Allergy/Immunology: Negative for hives, rash, and allergies, Endocrine: Negative for neck swelling, polydipsia, polyuria, polyphagia, and marked weight changes, Hematologic/Lymphatic: Negative for swollen nodes, abnormal bleeding, and unusual bruising. 22:32 Neuro: Positive for numbness, of the face. Exam: 22:32 Constitutional: This is a well developed, well nourished patient who is awake, alert, leanna and in no acute distress. Head/Face: Normocephalic, atraumatic. Eyes: Pupils equal round and reactive to light, extra-ocular motions intact. Lids and lashes normal. Conjunctiva and sclera are non-icteric and not injected. Cornea within normal limits. Periorbital areas with no swelling, redness, or edema. ENT: Nares patent. No nasal discharge, no septal abnormalities noted. Tympanic membranes are normal and external auditory canals are clear. Oropharynx with no redness, swelling, or masses, exudates, or evidence of obstruction, uvula midline. Mucous membranes moist. Neck: Trachea midline, no thyromegaly or masses palpated, and no cervical lymphadenopathy. Supple, full range of motion without nuchal rigidity, or vertebral point tenderness. No Meningismus. Chest/axilla: Normal chest wall appearance and motion. Nontender with no deformity. No lesions are appreciated. Cardiovascular: Regular rate and rhythm with a normal S1 and S2. No gallops, murmurs, or rubs. Normal PMI, no JVD. No pulse deficits. Respiratory: Lungs have equal breath sounds bilaterally, clear to auscultation and percussion. No rales, rhonchi or wheezes noted. No increased work of breathing, no retractions or nasal flaring. Abdomen/GI: Soft, non-tender, with normal bowel sounds. No distension or tympany. No guarding or rebound. No evidence of tenderness throughout. Back: No spinal tenderness. No costovertebral tenderness. Full range of motion. Skin: Warm, dry with normal turgor. Normal color with no rashes, no lesions, and no evidence of cellulitis. MS/ Extremity: Pulses equal, no cyanosis. Neurovascular intact. Full, normal range of motion. Neuro: Awake and alert, GCS 15, oriented to person, place, time, and situation. Cranial nerves II-XII grossly intact. Motor strength 5/5 in all extremities. Sensory grossly intact. Cerebellar exam normal. Normal gait. Psych: Awake, alert, with orientation to person, place and time. Behavior, mood, and affect are within normal limits. 23:26 ECG was reviewed by the Attending Physician. [facility] Vital Signs: 19:41 BP 156 / 89; Pulse 68; Resp 18 S; Temp 98.5(TE); Pulse Ox 98% on R/A; Weight 88.45 kg ca1 (R); Height 5 ft. 3 in. (160.02 cm) (R); Pain 0/10; 22:14 BP 163 / 105; Pulse 69; Resp 18; Pulse Ox 99% on R/A; Pain 0/10; ld1 19:41 Body Mass Index 34.54 (88.45 kg, 160.02 cm) ca1 NIH Stroke Scale Scores: 22:32 NIHSS Score: 0 leanna [place] Coma Score: 22:35 Eye Response: spontaneous(4). Verbal Response: oriented(5). Motor Response: obeys [facility] commands(6). Total: 15. MDM: 22:08 Patient medically screened. leanna 22:35 Differential diagnosis: cluster headache, cerebral vascular accident, hypoglycemia, leanna hyponatremia, migraine, sinusitis, subarachnoid bleed, subdural hematoma, temporal arteritis, trigeminal neuralgia. Data reviewed: vital signs, nurses notes, lab test result(s), EKG, radiologic studies, CT scan, plain films. Data interpreted: property assessment monitor: rate is 69 beats/min, rhythm is regular, Pulse oximetry: on room air. Test interpretation: by ED physician or midlevel provider: ECG, plain radiologic studies. Counseling: I had a detailed discussion with the patient and/or guardian regarding: the historical points, exam findings, and any diagnostic results supporting the discharge/admit diagnosis, lab results, radiology results, the need for outpatient follow up, for definitive care, a family practitioner, a neurologist. 09/29 22:32 Order name: Basic Metabolic Panel [facility] 09/29 22:32 Order name: CBC with Diff [facility] 09/29 22:32 Order name: LFT's; Complete Time: 23:27 [facility] 09/29 22:32 Order name: Magnesium; Complete Time: 23:27 [facility] 09/29 22:32 Order name: NT PRO-BNP; Complete Time: 23:27 [facility] 09/29 22:32 Order name: PT-INR; Complete Time: 23:22 [facility] 09/29 19:48 Order name: CT Head Brain wo Cont [facility] 09/29 22:32 Order name: Troponin (emerg Dept Use Only); Complete Time: 23:27 [facility] 09/29 22:32 Order name: Urine Culture [facility] 09/29 22:32 Order name: Sed Rate [facility] 09/29 22:32 Order name: CRP; Complete Time: 23:27 [facility] 09/29 22:32 Order name: Basic Metabolic Panel; Complete Time: 23:27 [facility]MS 09/29 22:33 Order name: CBC with Automated Diff [facility] 09/29 23:18 Order name: Urine Dipstick-Ancillary; Complete Time: 23:22 [facility]LA 09/29 22:32 Order name: XRAY Chest (1 view) [facility] 09/29 22:32 Order name: EKG; Complete Time: 22:33 [facility] 09/29 22:32 Order name: Cardiac monitoring; Complete Time: 22:36 [facility] 09/29 22:32 Order name: EKG - Nurse/Tech; Complete Time: 23:37 [facility] 09/29 22:32 Order name: IV Saline Lock; Complete Time: 22:57 [facility] 09/29 22:32 Order name: Labs collected and sent; Complete Time: 22:57 [facility] 09/29 22:32 Order name: O2 Per Protocol; Complete Time: 22:36 [facility] 09/29 22:32 Order name: O2 Sat Monitoring; Complete Time: 22:36 [facility] 09/29 22:32 Order name: Urine Dipstick-Ancillary (obtain specimen); Complete Time: 23:37 [facility] EC:26 Rate is 66 beats/min. Rhythm is regular. QRS [place] is Normal. [place] interval is normal. QRS leanna interval is normal. QT interval is normal. No Q waves. T waves are Normal. No ST changes noted. Clinical impression: NSR w/ Non-specific ST/T Changes and No evidence of ischemia. Interpreted by me. Reviewed by me. Administered Medications: :57 Drug: NS 0.9% 1000 ml Route: IV; Rate: 1 bolus; Site: left antecubital; ld1 22:57 Drug: foLIC Acid 1 mg Route: IVPB; Site: left antecubital; ld1 22:57 Drug: Aspirin Chewable Tablet 324 mg Route: PO; ld1 23:45 Drug: Rocephin (cefTRIAXone) 1 grams Route: IV; Rate: per protocol; Site: left ld1 antecubital; 23:45 Drug: Cipro (ciprofloxacin) 500 mg Route: PO; ld1 23:45 Drug: Ativan (LORazepam) 0.5 mg Route: IVP; Site: left antecubital; ld1 Disposition Summary: 09/29/20 23:45 Discharge Ordered Location: Home leanna Problem: new leanna Symptoms: have improved leanna Condition: Stable leanna Diagnosis - Adjustment disorder with anxiety leanna - Anxiety disorder, unspecified leanna - UTI/ Urinary tract infection, site not specified leanna Followup: leanna - With: - When: 2 - 3 days - Reason: Recheck today's complaints, Continuance of care, Re-evaluation by your physician Followup: leanna - With: - When: 1 - 2 days - Reason: Recheck today's complaints, Continuance of care, Re-evaluation by your physician Discharge Instructions: - Discharge Summary Sheet leanna - Dysuria leanna - Aspirin and Your Heart leanna - Generalized Anxiety Disorder, Adult leanna - Urinary Tract Infection, Adult leanna - Urinary Tract Infection, Adult, Jzoa-mg-[id number] leanna Forms: - Medication Reconciliation Form leanna - Thank You Letter leanna - Antibiotic Education leanna - Prescription Opioid Use leanna Prescriptions: - Folic Acid 1 mg Oral Tablet - take 1 tablet by ORAL route once daily; 30 tablet; Refills: 0, Product leanna Selection Permitted - Cipro 250 mg Oral Tablet - take 1 tablet by ORAL route every 12 hours; 14 tablet; Refills: 0, Product leanna Selection Permitted NIH Stroke Scale - NIH Stroke Score Date: 09/29/2020 Time: 22:32 Total Score = 0 1a. Level of Consciousness (LOC) - 0(Alert) 1b. Level of Consciousness (LOC) (Month \T\ Age) - 0(Both) 1c. LOC Commands (Open \T\ Closes Eyes/Legal Document Assistant) - 0(Both) 2. Best Gaze (Lateral Gaze Paresis) - 0(Normal) 3. Visual Field Loss - 0(No visual loss) 4. Facial Palsy - 0(Normal) 5a. Left Arm: Motor (10-second hold) - 0(No drift) 5b. Right Arm: Motor (10-second hold) - 0(No drift) 6a. Left Leg: Motor (5-second hold - always test supine) - 0(No drift) 6b. Right Leg: Motor (5-second hold - always test supine) - 0(No drift) 7. Limb Ataxia (finger/nose \T\ heel/farias - test with eyes open) - 0(Absent) 8. Sensory Loss (pinprick arms/legs/face) - 0(Normal) 9. Best Language: Aphasia (description/naming/reading) - 0(No aphasia) 10. Dysarthria (speech clarity - read or repeat words) - 0(Normal) 11. Extinction and Inattention (visual/tactile/auditory/spatial/personal) - 0(No abnormality) Initials: leanna Signatures: Dispatcher [employer] EDJeff Bains MD MD cha Acob, Cheryl RN RN ca1 Susana Buck RN RN ld1 Corrections: (The following items were deleted from the chart) 19:47 19:46 PSHx: None; ca1 ca1
[2020-09-30] MEDS ORDERED: LORazepam 2 MG/ML VIAL ONE (00:01)
[2020-09-30] MEDS ORDERED: CEFTRIAXONE/SWI 1gm 1 GM/10 ML SYR ONE (00:01)
[2020-09-30] MEDS ORDERED: CIPROFLOXACIN HCL 500 MG TAB ONE (00:01)
[2020-09-30 00:43] VITALS: TEMP 98.5
[2020-09-30 00:44] VITALS: BP 163/105; O2SAT 99
--- NOTE | 2020-09-30 07:50 | RAD REPORT ---
EXAM DESCRIPTION: Tasneem Single View09/29/2020 11:47 pm CLINICAL HISTORY: Cough COMPARISON: 2005 FINDINGS: The lungs appear clear of acute infiltrate. The heart is normal size IMPRESSION: No acute abnormalities displayed
--- NOTE | 2020-09-30 19:15 | EKG ---
Test Date: 2020-09-29 Test Time: 23:11:23 Cost Estimating Clerk: RUBI MEASUREMENT RESULTS: Intervals: Rate: 66 OH: 174 QRSD: 68 QT: 392 QTc: 410 [place]: P: 44 OH: 174 QRS: 8 T: 5 INTERPRETIVE STATEMENTS: Normal sinus rhythm Cannot rule out Anterior infarct, age undetermined Abnormal ECG Compared to ECG 11/21/2007 18:58:07 Myocardial infarct finding now present Electronically Signed On 09-30-20 19:13:39 CDT by Philippe Haro
--- NOTE | 2020-10-01 16:39 | RAD REPORT ---
EXAM DESCRIPTION: CT - Head Brain Wo Cont - 09/30/2020 6:55 am CLINICAL HISTORY: The patient is 50 years old and is Female; CONFUSED TECHNIQUE: Axial computed tomography images of the head/brain without intravenous contrast. Sagitt al and coronal reformatted images were created and reviewed. This CT exam was performed using one o r more of the following dose reduction techniques: automated exposure control, adjustment of the mA and/or kV according to patient size, and/or use of iterative reconstruction technique. COMPARISON: No relevant prior studies available. FINDINGS: Limitations: Evaluation somewhat limited by artifact/technique. Brain: Unremarkable. No hemorrhage. No significant white matter disease. No edema. Ventricles: Unremarkable. No ventriculomegaly. Bones/joints: Unremarkable. No acute fracture. Soft tissues: Unremarkable. Sinuses: Unremarkable as visualized. Mastoid air cells: Unremarkable as visualized. No mastoid effusion. IMPRESSION: No acute intracranial abnormality. Electronically signed by: Tucker Rouse MD 09/29/2020 11:29 PM CDT Due to temporary technical issues with the PACS/Fluency reporting system, reports are being signed by the in house radiologists without review as a courtesy to insure prompt reporting. The interpreting radiologist is fully responsible for the content of the report.
== END 2020-09-29 23:56 | disposition home or self-care (01) ==
LOC: ER 18:36
DX: N39.0 Urinary tract infection, site not specified (principal); F43.22 Adjustment disorder with anxiety; I10 Essential (primary) hypertension
CPT/HCPCS: 93005; 87088; 85025; 87086; 80048; 36415; 83735; 85610; 80076; 85652; 81003; 84484; 83880; 86140; 70450; 71045; J7030; 87077; 87186; 96374; 96375; 99284